=== PATIENT | male | born 1945 | race Caucasian/White ===

== ENCOUNTER 2017-06-11 12:29 | Observation (INO) | payer MEDICARE, BC ==
[~2017-06-11 12:29] MED LIST: ISOVUE-370 76%-LOCM 1 ML ONE; MD-Gastroview 120 ML BOT ONE
[2017-06-11 13:10] LABS: #Eosinphils 0.1 thou/uL (0.0-0.7); #Lymphocytes 1.1 thou/uL (1.20-3.40); #Monocytes 0.8 thou/uL (0.11-0.59); #Neutrophils 10.2 thou/uL (1.40-6.50); %Eosinophils 0.4 % (0.0-10.0); %Lymphocytes 8.9 % (21.0-51.0); %Monocytes 6.4 % (0.0-10.0); %Neutrophils 84.3 % (42.0-75.0); Hemoglobin 16.6 g/dL (14.0-18.0); Mean Corpuscular HGB CONC 32.9 g/dL (32.0-36.0); Mean Corpuscular Hemoglobin 33.1 pg (27.0-31.0); Mean Platelet Volume 9.3 fL (7.4-10.4); Platelet Count 163 thou/uL (130-400); Red Blood Cell (RBC) Count 5.01 mill/uL (4.70-6.10); White Blood Cell (WBC) Count 12.1 thou/uL (4.8-10.8)
[2017-06-11 13:33] LABS: ALT (SGPT) 49 U/L (8-55); AST (SGOT) 31 U/L (5-34); Albumin 4.6 g/dL (3.4-4.8); Alkaline Phosphatase 72 U/L (40-150); Anion Gap 17 mmol/L (10-20); BUN (Urea Nitrogen) 16 mg/dL (8.4-25.7); Bilirubin, Total 0.6 mg/dL (0.2-1.2); Calc. Creatinine Clearance 0 mL/min (70-130); Calcium 9.9 mg/dL (7.8-10.44); Carbon Dioxide 22 mmol/L (23-31); Chloride 106 mmol/L (98-107); Estimated GFR-MDRD 74; Globulin 3.1 g/dL (2.4-3.5); Glucose 124 mg/dL (83-110); Lipase 56 U/L (8-78); Potassium 4.8 mmol/L (3.5-5.1); Protein, Total 7.7 g/dL (5.8-8.1); Sodium 140 mmol/L (136-145)
[2017-06-11] MEDS ORDERED: Ondansetron PF 4 MG/2 ML Vial ONE (13:35)
[2017-06-11] MEDS ORDERED: HYDROmorphone 0.5 MG/0.5 ML SYRINGE ONE (13:59)
--- NOTE | 2017-06-11 14:12 | CT ---
CT OF THE ABDOMEN AND PELVIS WITH IV CONTRAST: DATE: 06/11/17. PROVIDED CLINICAL HISTORY: Abdominal pain. FINDINGS: The visualized lung bases are clear. The liver, spleen, pancreas, kidneys, and adrenal glands demons trate an unremarkable CT appearance. There are multiple dilated loops of fluid-filled small bowel primarily within the left mid abdomen. There is swirling of the abdominal mesentery best appreciated on the coronal images. A focal loop of small bowel within the left mid abdomen appears to insinuate within the colonic mesentery. Gas and stool are noted within the colon. There is no evidence for pneumatosis or portal venous gas. There is no free intraperitoneal air present. There is mesenteric edema within the small bowel mesentery l eft of midline. There is a small amount of free fluid present. The osseous structures demonstrate no concerning osteoblastic or osteolytic lesions. IMPRESSION: Findings compatible with small bowel obstruction. CT findings suggest an internal hernia as the etio logy. Surgical consultation is recommended. POS: [facility]
[2017-06-11 14:35] LABS: Bilirubin Negative (Negative); Blood, Urine Negative (Negative); Clarity CLEAR (Clear); Glucose, Urine (Dipstick) Negative (Negative); Leukocyte Negative (Negative); Nitrite Negative (Negative); Protein, Urine (Dipstick) Negative (Neg-Trace); Urobilinogen 0.2 mg/dL (0.2-1.0); pH, Urine 5.5 (5.0-9.0)
[2017-06-11 14:44] LABS: Specific Gravity, Urine 1.042 (1.002-1.036)
[2017-06-11] MEDS ORDERED: Lidocaine Viscous Sol 2% 15 ml UD Cup ONE (14:53)
[2017-06-11] MEDS ORDERED: Benzocaine 20% Spray 60 ML CAN ONE (14:53)
[2017-06-11] MEDS ORDERED: Dextrose 50% Abboject 50 ML SYRINGE SLOW IVP PRN (16:09)
[2017-06-11] MEDS ORDERED: Ondansetron PF 4 MG/2 ML Vial IVP PRN (16:09)
[2017-06-11] MEDS ORDERED: Dextrose 5% in Water 1,000 ML IV PRN (16:09)
[2017-06-11 16:31] LABS: Phosphorus 3.9 mg/dL (2.3-4.7)
--- NOTE | 2017-06-11 16:50 | HP ---
DATE OF ADMISSION: 06/11/2017 HISTORY OF PRESENT ILLNESS: Mr. Velarde is a 72-year-old man who was in the usual state of health up until this morning when he experienced the sudden onset lower abdominal crampy pain. Initi ally, pain was rated 5/10 and then progressed to 7/10, associated with episode of nausea and emesis. The patient had a normal bowel movement this morning. He denies any fevers or chills. He presented to emergency department at which time the pain intensif ied to 10/10. He had been given some morphine and Dilaudid and achieved adequate pain control. CT s can of the abdomen and pelvis was obtained which was suspicious for an internal hernia. Nasogastric tube was placed which has returned on scant nonbilious gastric effluent. At the time of my evaluatio n, the patient reports no abdominal pain. He has no nausea. PAST MEDICAL HISTORY: Unremarkable. PAST SURGICAL HISTORY: Pertinent for childhood appendectomy at age 15. He had pulmonary ablation fo r atrial fibrillation 4 years ago. He also had surgery to both great toes 10 years ago. He denies a ny other abdominal surgeries. SOCIAL HISTORY: The patient is and lives at home with his . He denies any cigarette smo lucille or illicit drug abuse. Admits to occasional intake of ethanol in very moderate amounts. FAMILY HISTORY: None. ALLERGIES: The patient denies any known drug allergies. REVIEW OF SYSTEMS: 10-point review of system is essentially unremarkable except for as stated in pas t medical history and chief complaint. PHYSICAL EXAMINATION: GENERAL: This reveals a 72-year-old normally developed man who is otherwise coherent and interactive and appears stated age. The patient is alert and oriented x3, appears to be in no acute distress at the time of my evaluation. VITAL SIGNS: Includes blood pressure 149/56, pulse is 59, respiratory rate is 14, oxygen saturation is 98% on room air. HEENT: Reveals normocephalic and atraumatic. Pupils are equal, round, and reactive to light and acc ommodation. Extraocular muscles are intact bilaterally. He has no sclerae icterus present. Oral mu cosa is pink and moist. No lesions are noted. NECK: Supple. No palpable lymphadenopathy or thyromegaly present. CARDIOVASCULAR: Reveals regular rate and rhythm. No murmurs or gallops auscultated. LUNGS: Clear to auscultation bilaterally. His breathing is regular and unlabored. ABDOMEN: Soft and nontender and nondistended. Bowel sounds in all four quadrants appear normoactive . Liver and spleen are nonpalpable below costal margins. EXTREMITIES: Reveals 2+ radial and pedal pulses bilaterally. No ankle edema is present. NEUROLOGIC: Cranial nerves II-XII grossly intact bilaterally. He has no focal neurologic deficits present. PERTINENT LABORATORY DATA: Includes a CBC with 12,100 white blood cells, hemoglobin 16.6, hematocrit 50.4, platelet count is 163,000. Metabolic profile: Sodium 140, potassium is 4.8, chloride is 106, bicarbonate 22, BUN 16, creatinine is 1.0, glucose 124, total bilirubin 0.6, AST and ALT normal at 3 1 and 49 respectively. Serum lipase is normal at 56. Urinalysis essentially unremarkable. I have personally reviewed the CT scan of the abdomen and pelvis, which is remarkable for multiple di lated loops of fluid-filled small bowel in the left mid to upper quadrant. There is no pneumoperiton eum or free intraperitoneal fluid present. There is also some mesenteric fat stranding in the involved bowel segments. IMPRESSION: 1. Now resolved acute abdominal pain. 2. Distended loops of small bowel with mesenteric inflammation. I suspect gastroenteritis as the et iology, although the report by Radiology is suggestive of possible internal hernia. RECOMMENDATIONS: There is no acute surgical indication for this patient at this time given normal cl inical and laboratory examination. PLAN: I have recommended small bowel follow through and serial physical examination. Allow the patient to take a clear liquid diet tonight. Above findings and plan discussed with the patient and his at bedside. They both indicated unde rstanding of information given. I answered their questions. The patient has granted consent for thi s admission.
--- NOTE | 2017-06-11 18:32 | RAD ---
GASTROGRAFIN SMALL BOWEL FOLLOW THROUGH 06/11/17 HISTORY: Evaluate for small bowel obstruction, mid abdominal pain. FINDINGS: Engineering Technologist image demonstrates contrast media within the renal collecting system and urinary bladder. The p atient was administered gastrografin and multiple post ingestion images were obtained. 30 minutes fol lowing ingestion, there is contrast media within the stomach and multiple nondilated loops of proxima l small bowel within the left abdomen. At one hour, contrast media has extended into numerous ileal l oops, none of which appear dilated. At 1.5 hours, the contrast media has reached the colon, extending at least to the level of the hepatic flexure. No evidence for small bowel obstruction. IMPRESSION: Grossly unremarkable small bowel follow through. POS: [facility]
[2017-06-11] MEDS: Sodium Chloride 0.9% 1,000 ML IV SCH (20:45)
[2017-06-11 21:41] VITALS: BMI 25.0
[2017-06-12] MEDS: Sodium Chloride 0.9% 1,000 ML IV SCH ×2 (03:50→12:48)
[2017-06-12 04:30] LABS: #Eosinphils 0.1 thou/uL (0.0-0.7); #Lymphocytes 1.6 thou/uL (1.20-3.40); #Monocytes 0.7 thou/uL (0.11-0.59); #Neutrophils 4.1 thou/uL (1.40-6.50); %Basophils 0.4 % (0.0-1.0); %Eosinophils 0.9 % (0.0-10.0); %Lymphocytes 24.7 % (21.0-51.0); Hemoglobin 13.4 g/dL (14.0-18.0); Mean Corpuscular Hemoglobin 34.2 pg (27.0-31.0); Mean Platelet Volume 9.1 fL (7.4-10.4); Platelet Count 140 thou/uL (130-400); RBC Distribution Width 12.9 % (11.5-14.5); Red Blood Cell (RBC) Count 3.92 mill/uL (4.70-6.10); White Blood Cell (WBC) Count 6.4 thou/uL (4.8-10.8)
[2017-06-12 04:35] LABS: Anion Gap 10 mmol/L (10-20); BUN (Urea Nitrogen) 16 mg/dL (8.4-25.7); Calc. Creatinine Clearance 80 mL/min (70-130); Calcium 8.7 mg/dL (7.8-10.44); Carbon Dioxide 27 mmol/L (23-31); Chloride 110 mmol/L (98-107); Estimated GFR-MDRD 78; Glucose 76 mg/dL (83-110); Potassium 3.7 mmol/L (3.5-5.1); Sodium 143 mmol/L (136-145)
--- NOTE | 2017-06-12 11:36 | DIS ---
DATE OF ADMISSION: 06/11/2017 DATE OF DISCHARGE: 06/12/2017 ADMITTING AND DISCHARGING PHYSICIAN: Dr. Jose eFrrer. ADMITTING DIAGNOSIS: Acute partial small-bowel obstruction versus gastroenteritis. DIAGNOSIS ON DISCHARGE: Acute partial small-bowel obstruction versus gastroenteritis, resolved. HISTORY AND HOSPITAL COURSE: A 72-year-old man presented to the emergency department with insidious onset of severe abdominal pain. Clinical and radiographic examination was consistent with acute part ial small-bowel obstruction versus gastroenteritis. On clinical examination, patient had minimal abd ominal pain by the time I was evaluating him. CT scan of the abdomen and pelvis; however, revealed inflammation of the mesentery in the left abdome n involving small bowel loops with focal area of suspected internal hernia. Based on these findings, patient was placed in observation. Acute small bowel follow through was ini tiated which was essentially or remarkable for any small-bowel obstruction. Overnight, the patient h as had multiple loose bowel movements. This morning, he is tolerating clear liquid diet. He denies any abdominal pain. He has remained hemodynamically stable and afebrile. PHYSICAL EXAMINATION: VITAL SIGNS: Currently includes blood pressure 127/70, pulse 52, respiratory rate 16, maximum temper ature on this admission 97.9 degrees Fahrenheit, oxygen saturation 98% on room air. ABDOMEN: Soft, nontender and nondistended on examination. LABORATORY DATA: Laboratory findings include CBC with 6,400 white blood cells, hemoglobin and hemato crit stable at 13.4 and 39.4 respectively. Platelet count 140,000. Metabolic profile: Sodium 143, potassium is 3.7, chloride is 110, bicarbonate 27, BUN 16, creatinine 0.95, glucose 76. IMPRESSION: 1. Resolved acute abdominal pain. 2. No clinical evidence of bowel obstruction. PLAN: Diet will be advanced and the patient will be discharged home. The patient is to follow up wi th his primary care physician as needed. He is instructed to return to the emergency department with any return of abdominal pain, especially if it is associated with any intolerance to oral intake. T he patient indicates understanding of the information given. I answered his questions.
[2017-06-12 12:19] VITALS: BP 117/68; TEMP 98.2
== END 2017-06-12 14:00 | disposition home or self-care (01) ==
LOC: ERS 12:29 → SJJU 16:09
PROVIDERS: ADMIT Surgery; ATTEND Surgery
DX: R10.9 Unspecified abdominal pain (principal); Z79.82 Long term (current) use of aspirin; Z90.49 Acquired absence of other specified parts of digestive tract; Z98.890 Other specified postprocedural states
CPT/HCPCS: 43752; 74177; 74250; 80048; 80053; 81003; 83690; 83735; 84100; 85025 ×2; 96361; 96374; 96375; 99285; G0378; 36415; J1170; J2270; J2405

== ENCOUNTER 2018-09-14 19:24 | Emergency (ER) | payer MEDICARE, BC ==
[2018-09-14] MEDS ORDERED: Acetaminophen 500 MG TAB ONE (19:44)
--- NOTE | 2018-09-14 20:52 | RAD ---
TWO VIEW CHEST: Indications: Cough. FINDINGS: Lungs appear clear. No infiltrates seen. Heart and mediastinum unremarkable. IMPRESSION: No acute process. POS: [facility]
== END 2018-09-14 20:15 | disposition home or self-care (01) ==
LOC: SCSER 19:24
DX: J06.9 Acute upper respiratory infection, unspecified (principal); I10 Essential (primary) hypertension; Z79.899 Other long term (current) drug therapy
CPT/HCPCS: 71046

== ENCOUNTER 2025-01-17 22:12 | Inpatient (IN) | payer MEDICARE ==
[2025-01-17 23:22] LABS: #Basophils 0.03 10x3/uL (0.0-0.2); #Eosinophils 0.19 10x3/uL (0.0-0.7); #Monocytes 0.47 10x3/uL (0.11-0.59); #Neutrophils 2.99 10x3/uL (1.40-6.50); %Basophils 0.6 % (0.0-1.0); %Eosinophils 3.7 % (0.0-10.0); %Lymphocytes 27.8 % (21.0-51.0); %Monocytes 9.1 % (0.0-10.0); %Neutrophils 58.2 % (42.0-75.0); Hematocrit 38.8 % (42.0-52.0); Hemoglobin 13.3 g/dL (14.0-18.0); Mean Corpuscular Hemoglobin 32.7 pg (27.0-31.0); Mean Corpuscular Volume 95.3 fL (78.0-98.0); Platelet Count 134 10x3/uL (130-400); Red Blood Cell (RBC) Count 4.07 mill/uL (4.70-6.10); White Blood Cell (WBC) Count 5.14 10x3/uL (4.8-10.8)
[2025-01-17 23:46] LABS: Magnesium 1.6 mg/dL (1.6-2.6)
[2025-01-17 23:47] LABS: ALT (SGPT) 42 U/L (Less than 45); AST (SGOT) 48 U/L (11-34); Albumin 3.0 g/dL (3.1-4.5); Alkaline Phosphatase 64 U/L (40-110); Anion Gap 17 mmol/L (10-20); BUN (Urea Nitrogen) 19 mg/dL (8.4-25.7); Bilirubin, Total 0.3 mg/dL (0.3-1.2); Calc. Creatinine Clearance 0 mL/min (70-130); Calcium 7.7 mg/dL (7.8-10.44); Carbon Dioxide 14 mmol/L (23-31); Chloride 113 mmol/L (98-107); Globulin 2.2 g/dL (2.4-3.5); Glucose 94 mg/dL (83-110); Potassium 3.9 mmol/L (3.5-5.1); Sodium 140 mmol/L (136-145)
[2025-01-18] MEDS ORDERED: Acetaminophen 325 MG TAB PO PRN (02:10)
[2025-01-18] MEDS ORDERED: Calcium Carbonate 500 MG ChewTAB PO PRN (02:10)
[2025-01-18] MEDS ORDERED: Senokot S 8.6-50 MG TAB PO PRN (02:10)
[2025-01-18] MEDS ORDERED: Melatonin 3 MG TAB PO PRN (02:10)
[2025-01-18] MEDS ORDERED: Ondansetron PF 4 MG/2 ML Vial IVP PRN (02:10)
[2025-01-18] MEDS ORDERED: Electrolyte Replacement Protocol 1 EACH FS SCH ×2 (02:15→05:00)
[2025-01-18 04:13] VITALS: BMI 31.4
[2025-01-18 04:28] LABS: Bacteria/HPF None Seen HPF (None Seen); CAUTI Indications for Culture Alt mental st,lethar; Glucose, Urine (Dipstick) Normal (Negative); Leukocyte Negative Leu/uL (Negative); Protein, Urine (Dipstick) Negative (Neg-Trace); RBC/HPF 0-3 HPF (0-3); Specific Gravity, Urine 1.011 (1.002-1.036); WBC/HPF 0-3 HPF (0-3)
[2025-01-18 04:29] LABS: Urine Culture Reflex No No
[2025-01-18 05:51] LABS: #Basophils 0.03 10x3/uL (0.0-0.2); #Eosinophils 0.15 10x3/uL (0.0-0.7); #Monocytes 0.47 10x3/uL (0.11-0.59); #Neutrophils 4.46 10x3/uL (1.40-6.50); %Basophils 0.5 % (0.0-1.0); %Eosinophils 2.3 % (0.0-10.0); %Lymphocytes 19.8 % (21.0-51.0); %Monocytes 7.3 % (0.0-10.0); %Neutrophils 69.5 % (42.0-75.0); Hematocrit 36.8 % (42.0-52.0); Hemoglobin 12.5 g/dL (14.0-18.0); Mean Corpuscular Hemoglobin 33.2 pg (27.0-31.0); Mean Corpuscular Volume 97.9 fL (78.0-98.0); Platelet Count 136 10x3/uL (130-400); Red Blood Cell (RBC) Count 3.76 mill/uL (4.70-6.10); White Blood Cell (WBC) Count 6.42 10x3/uL (4.8-10.8)
[2025-01-18 06:03] LABS: ALT (SGPT) 43 U/L (Less than 45); AST (SGOT) 43 U/L (11-34); Albumin 3.2 g/dL (3.1-4.5); Alkaline Phosphatase 72 U/L (40-110); Anion Gap 12 mmol/L (10-20); BUN (Urea Nitrogen) 18 mg/dL (8.4-25.7); Bilirubin, Total 0.3 mg/dL (0.3-1.2); Calc. Creatinine Clearance 68 mL/min (70-130); Calcium 8.3 mg/dL (7.8-10.44); Carbon Dioxide 20 mmol/L (23-31); Chloride 109 mmol/L (98-107); Globulin 2.4 g/dL (2.4-3.5); Glucose 94 mg/dL (83-110); Magnesium 1.7 mg/dL (1.6-2.6); Potassium 4.3 mmol/L (3.5-5.1); Sodium 137 mmol/L (136-145)
[2025-01-18 07:20] LABS: Cocaine Metabolite Screen Negative (Negative); THC/Cannabinoid Screen Negative (Negative); Tricyclic Screen Negative (Negative)
[2025-01-18] MEDS: Folic Acid 1 MG TAB PO SCH (07:38)
[2025-01-18] MEDS: Apixaban 5 MG TAB PO SCH (07:38)
[2025-01-18] MEDS: Multivit, Therapeutic 1 TAB PO SCH (07:38)
[2025-01-18] MEDS: Magnesium 2 GM/50 ML(in water) 2 GM in Premix 1 BAG IVPB SCH (07:39)
[2025-01-18 16:53] VITALS: BP 158/90; TEMP 98.2
[2025-01-19] MEDS ORDERED: Losartan 25 MG TAB PO SCH (09:00)
[2025-01-21] MEDS ORDERED: Thiamine 100 MG TAB PO SCH (05:00)
== END 2025-01-18 17:59 | disposition home or self-care (01) | DRG 309 ==
LOC: ERS 22:12 → ERHOLD 01-18 00:07 → 2NO 01-18 04:03
PROVIDERS: ADMIT Internal Medicine; ATTEND Internal Medicine
DX: R00.1 Bradycardia, unspecified (principal); I13.0 Hypertensive heart and chronic kidney disease with heart failure and stage 1 through stage 4 chronic kidney disease, or unspecified chronic kidney disease; R55 Syncope and collapse; I48.92 Unspecified atrial flutter; I48.20 Chronic atrial fibrillation, unspecified; E78.5 Hyperlipidemia, unspecified; I50.9 Heart failure, unspecified; N18.30 Chronic kidney disease, stage 3 unspecified; M10.9 Gout, unspecified; F10.10 Alcohol abuse, uncomplicated; Z98.890 Other specified postprocedural states; Z90.49 Acquired absence of other specified parts of digestive tract; Z79.899 Other long term (current) drug therapy; Z79.01 Long term (current) use of anticoagulants; E83.110 Hereditary hemochromatosis
CPT/HCPCS: 36415; 71045; 80053; 80306; 81001; 82728; 83540; 83550; 83735; 83880; 84100; 84443; 84484; 85025; 93005; 96361; 96374; J0461; J3411; J3475